=== PATIENT | female | born 2000 | race Caucasian/White ===

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

== ENCOUNTER → 2023-02-23 | Outpatient (CLI) | payer BC, OTHER ==
--- NOTE | 2023-02-23 13:08 | XR ---
Supine abdomen. DATE: 02/23/2023. COMPARISON: 09/25/2017 CLINICAL HISTORY: Kidney stones. IMPRESSION: The bowel gas pattern is nonobstructive. No definitive suspicious is calcifications are seen radiographically. There is no abnormal mass effect. IUD is seen within the pelvis.
== END | disposition home or self-care (01) ==
LOC: RADXRMAIN 12:28
PROVIDERS: ATTEND Urology
DX: N20.0 Calculus of kidney (principal)
CPT/HCPCS: 74018

== ENCOUNTER → 2023-04-05 | Outpatient (CLI) | payer BC, OTHER ==
--- NOTE | 2023-04-05 12:26 | XR ---
EXAMINATION TYPE: XR KUB DATE OF EXAM: 04/05/2023 COMPARISON: NONE HISTORY: Renal calculi TECHNIQUE: Single supine KUB image of the abdomen is obtained FINDINGS: Small bowel demonstrates no evidence for dilatation or air fluid levels. Gas and fecal material is seen in non-distended colon. No convincing evidence for pneumoperitoneum. 7 mm suggested calculus overlying the left mid kidney. No pelvic calcifications identified. No defini tive right renal calculi. IUD is present within the pelvis. The lung bases are clear. The osseous structures are intact. IMPRESSION: Suggested 7 mm calculus overlying the left mid kidney.
== END | disposition home or self-care (01) ==
LOC: RADXRMAIN 12:03
PROVIDERS: ATTEND Urology
DX: N20.0 Calculus of kidney (principal)
CPT/HCPCS: 74018

== ENCOUNTER → 2023-04-18 | Outpatient (CLI) | payer BC, OTHER ==
--- NOTE | 2023-04-18 12:36 | XR ---
EXAMINATION TYPE: XR KUB DATE OF EXAM: 04/18/2023 COMPARISON: KUB 04/05/2023 HISTORY: Calculus of kidney TECHNIQUE: Single supine KUB image of the abdomen is obtained FINDINGS: Small bowel demonstrates no evidence for dilatation or air fluid levels. Gas and fecal material is seen in non-distended colon. No definitive renal or ureteral calculi identified. IUD is present within the pelvis. The lung bases are clear. The osseous structures are intact. IMPRESSION: 1. Overall nonobstructive bowel gas pattern. 2. No definitive renal or ureteral calculi identified.
== END | disposition home or self-care (01) ==
LOC: RADXRMAIN 12:09
PROVIDERS: ATTEND Urology
DX: N20.0 Calculus of kidney (principal)
CPT/HCPCS: 74018